=== PATIENT | female | born 1950 | race Caucasian/White ===

== ENCOUNTER 2021-03-26 10:08 | Emergency (ER) | payer MEDICARE ==
[~2021-03-26] VITALS: Ht 157.5 cm; Wt 73.9 kg
--- NOTE | 2021-03-26 10:27 | NUR ---
PT DOING WELL EXCEPT C/O UTI SYMPTOMS. STATES SHE HASN'T HAD ONE IN A FEW YEARS. SITTING ON SIDE OF GURNEY. ERP IN TO SEE PT. URINE SAMPLE SENT TO LAB. AT BS.
[2021-03-26 10:39] LABS: MICROSCOPIC INDICATED
[2021-03-26] MEDS ORDERED: CEFDINIR 300 MG CAPSULE ONE (10:54)
[2021-03-26] MEDS ORDERED: CEFDINIR 300 MG CAPSULE PO ONE (11:00)
[2021-03-26 11:18] VITALS: BP 127/82
--- NOTE | 2021-03-26 11:20 | NUR ---
D/C INSTRUCTIONS, MEDS & F/U APPT RV'WD WITH PT, SHE VERBALIZES UNDERSTANDING. RX GIVEN X1. INSTRUCTED PT TO RETURN TO ED OR F/U WITH PCP IN [place] IF SYMPTOMS NOT IMPROVING OR WORSENING. AMBULATED OUT OF ED WITH SPOUSE WITHOUT DIFFICULTY.
== END 2021-03-26 11:30 | disposition home or self-care (01) ==
LOC: ED 11:15
DX: N30.01 Acute cystitis with hematuria (principal); I10 Essential (primary) hypertension
CPT/HCPCS: 81001; 87077; 87086; 87186; 99283